=== PATIENT | male | born 1945 | race Caucasian/White ===

== ENCOUNTER → 2024-10-20 07:21 | Outpatient (REF) | payer OTHER, SELFPAY | LOC: HWRCS 07:21 | PROVIDERS: ATTENDING PHYSICIAN Internal Medicine Cardiovascular Disease; FAMILY PHYSICIAN Family Medicine | DX: I25.10 Atherosclerotic heart disease of native coronary artery without angina pectoris (principal); R07.89 Other chest pain | CPT/HCPCS: 93306 ==